=== PATIENT | male | born 1945 | race Caucasian/White ===

== ENCOUNTER → 2016-07-29 | Outpatient (CLI) | payer MEDICARE, OTHER ==
[~2016-07-29] MED LIST: ALDACTONE; AMIO400T5 PO; ASA PO; CARV12.579 PO; EZET1TAB50 PO; HYD25 PO; IODIXANOL LOCM 100 ML BTL ONE; OMEG-135 PO; PANT40TA4 PO; QUIN20TA16 PO; SOD CHLORIDE 0.9% 100 ML ONE; TRAJENTA; WARF5TAB72 PO; [UNRECOGNIZED DRUG - CODE] PO; [UNRECOGNIZED DRUG - CODE] PO
--- NOTE | 2016-07-29 10:10 | RADRPT ---
PROCEDURE: CT scan of the pelvis with contrast CLINICAL INDICATION: Lower abdominal pain. TECHNIQUE: Axial imaging was obtained through the abdomen pelvis following intravenous contrast adm inistration using a multi-slice CT scanner. Standard CT scan of the pelvis with contrast protocols were performed. The total exam CTDI equals 22.48 mGy and the total exam DLP equals 1359.95 mGy-cm. COMPARISON: None FINDINGS: There is mild hepatomegaly without focal hepatic lesions. The spleen pancreas adrenal glands and ki dneys are normal size configuration without focal lesions. Negative for hydronephrosis bilaterally. Prostate gland is moderately enlarged impressing the floor in her bladder. Uterine bladder wall i s moderately thickened and while this may relate to lack of optimal distension chronic outlet obstru ction or cystitis should be considered. There is diffuse atherosclerotic vascular disease of the ab dominal aorta with ectasia. 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 There is mild to moderate atherosclerotic vascular disea se of the common iliac arteries. There is no evidence of dissection or periaortic or shaneka iliac art erial fluid collections. Negative for intra-abdominal free air free fluid abscesses or lymphadenopa thy. The stomach, small bowel and large bowel are unremarkable. The heart is within normal limits in size. There is an electrode extending to the region right heart. There is coronary artery disea se present. The lung bases are otherwise unremarkable. There are degenerative changes lower thorac ic and lumbar spine. IMPRESSION: 1. Moderate enlargement of the prostate gland impressing the floor of the urinary bladder. The uri nary bladder wall demonstrates moderate circumferential wall thickening which may relate to lack of optimal distension of chronic outlet obstruction or cystitis should be considered. No evidence of h ydronephrosis bilaterally. 2. Mild to hepatomegaly 3. No evidence of intra-abdominal free air fluid abscesses or lymphadenopathy. 4. 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 RPTAT:AAJJ Physician Kayode Date Time Electronically viewed and signed by Physician Kayode on 07/29/2016 10:09 BM/
== END | disposition home or self-care (01) ==
LOC: C/S 08:06
PROVIDERS: ATTEND Internal Medicine
DX: R10.30 Lower abdominal pain, unspecified (principal); I25.10 Atherosclerotic heart disease of native coronary artery without angina pectoris; I70.90 Unspecified atherosclerosis; N40.0 Benign prostatic hyperplasia without lower urinary tract symptoms
CPT/HCPCS: 74177; Q9967